=== PATIENT | female | born 1935 | race Caucasian/White ===

== ENCOUNTER 2018-02-21 09:21 | Emergency (ER) | payer MEDICARE, OTHER ==
[2018-02-21 10:35] LABS: #Basophils 0.1 thou/uL (0.0-0.2); #Eosinphils 0.1 thou/uL (0.0-0.7); #Lymphocytes 1.7 thou/uL (1.20-3.40); #Monocytes 0.6 thou/uL (0.11-0.59); %Basophils 0.8 % (0.0-1.0); %Eosinophils 0.7 % (0.0-10.0); %Lymphocytes 20.4 % (21.0-51.0); %Monocytes 6.7 % (0.0-10.0); %Neutrophils 71.5 % (42.0-75.0); Mean Corpuscular HGB CONC 33.3 g/dL (32.0-36.0); Mean Corpuscular Hemoglobin 30.1 pg (27.0-31.0); Mean Corpuscular Volume 90.5 fL (78.0-98.0); Mean Platelet Volume 8.7 fL (7.4-10.4); Platelet Count 215 thou/uL (130-400); RBC Distribution Width 11.5 % (11.5-14.5); Red Blood Cell (RBC) Count 4.65 mill/uL (4.20-5.40); White Blood Cell (WBC) Count 8.4 thou/uL (4.8-10.8)
[2018-02-21] MEDS ORDERED: Amoxicillin/Potassium Clav 875 MG TAB ONE (11:07)
--- NOTE | 2018-02-21 19:28 | RAD ---
CHEST TWO VIEWS: 02/21/18 Comparison is made with a 04/18/08 study. There is some increased streaking in the right base that I d id not see on the prior study. An early pneumonia here is possible. The lungs are otherwise clear. T he heart is normal in size. There are no effusions or congestive changes. It is difficult to assess t he right humeral head but there may have been old trauma here. 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 IMPRESSION: Possible right basilar infiltrate. Code T POS: HOME
== END 2018-02-21 12:28 | disposition home or self-care (01) ==
LOC: BURERS 09:21
DX: J01.90 Acute sinusitis, unspecified (principal); E86.0 Dehydration; I25.10 Atherosclerotic heart disease of native coronary artery without angina pectoris; E11.9 Type 2 diabetes mellitus without complications; E78.00 Pure hypercholesterolemia, unspecified; Z79.899 Other long term (current) drug therapy; Z79.84 Long term (current) use of oral hypoglycemic drugs
CPT/HCPCS: 36415; 71046; 83605; 85025; 96360